=== PATIENT | female | born 1965 | race Two or more races ===

== ENCOUNTER 2017-11-20 10:59 | Inpatient (IN) | payer OTHER ==
[~2017-11-20] VITALS: Ht 170.2 cm; Wt 104.3 kg
[2017-11-30] MEDS ORDERED: CODE1TAB37 PO (10:57)
== END 2017-11-30 11:44 | disposition home or self-care (01) | DRG 743 ==
LOC: O/R 11-27 06:00 → SURG-SUITE 11-27 06:00 → RECOVERY 11-27 07:00 → OB/GYN 11-27 10:52 → RECOVERY 11-27 11:30 → SURG-SUITE 11-27 12:05 → OB/GYN 11-27 17:17 → SURG-SUITE 11-27 22:24 → RECOVERY 12-04 11:30
PROVIDERS: Obstetrics & Gynecology
PROC: 0TJB8ZZ Inspection of Bladder, Via Natural or Artificial Opening Endoscopic (ICD-10-PCS; 2017-11-27)
PROC: 0UT90ZZ Resection of Uterus, Open Approach (ICD-10-PCS; principal; 2017-11-27 07:00)
PROC: 0UT10ZZ Resection of Left Ovary, Open Approach (ICD-10-PCS; 2017-11-27 07:00)
PROC: 0UT60ZZ Resection of Left Fallopian Tube, Open Approach (ICD-10-PCS; 2017-11-27 07:00)
DX: D25.1 Intramural leiomyoma of uterus (principal); D25.0 Submucous leiomyoma of uterus; D25.2 Subserosal leiomyoma of uterus; N72 Inflammatory disease of cervix uteri; N80.2 Endometriosis of fallopian tube; N80.1 Endometriosis of ovary; N83.12 Corpus luteum cyst of left ovary; N81.11 Cystocele, midline; N94.5 Secondary dysmenorrhea; N92.0 Excessive and frequent menstruation with regular cycle